=== PATIENT | female | born 1985 | race Native Hawaiian/Other Pacific Islander ===

== ENCOUNTER 2017-04-30 13:28 | Emergency (ER) | payer OTHER ==
--- NOTE | 2017-04-30 16:58 | US ---
PROCEDURE: Obstetrical ultrasound examination and limited biophysical profile HISTORY: Vaginal bleeding 20 weeks r/o placenta previa COMPARISON: Not available TECHNIQUE: Transabdominal FINDINGS: There is a single live intrauterine gestation in vertex presentation. The heart rate is 144 beats per minute. A grossly normal quantity of amniotic fluid is visualized. Normal fundal placenta is identified. There is no evidence of placenta previa. The cervix is mildly shortened, measuring 2.6 cm in length. The cervix is closed. biometry yields a gestational age of 21 weeks 6 days. The KARINA by ultrasound is 09/04/2017. Limited review of anatomy demonstrates fluid distending the stomach and urinary bladder. A 4 chamber heart is demonstrated. Two normal kidneys are demonstrated without evidence of hydronephrosis. A three-vessel umbilical cord is identified. The anterior abdominal wall is intact. Limited biophysical profile examination yields a score of 8 out of 8. IMPRESSION: Single live intrauterine gestation of approximately 21 weeks 6 days. No gross anatomic abnormality. Mildly shortened cervix, measuring 2.6 cm. Cervix closed. Fundal placenta. No previa. Normal amniotic fluid volume. Biophysical profile score is 8 out of 8.
== END 2017-04-30 17:24 | disposition home or self-care (01) ==
LOC: C.EROB 13:28
DX: O46.92 Antepartum hemorrhage, unspecified, second trimester (principal); Z3A.22 22 weeks gestation of pregnancy